=== PATIENT | male | born 1995 | race African-American/Black ===

== ENCOUNTER 2022-08-16 06:21 | Observation (INO) | payer OTHER ==
[2022-08-16] VITALS (12 sets, daily range): BP systolic 101–149; BP diastolic 52–66; PULSE 59–86; TEMP 98.2–101.2
[~2022-08-16] VITALS: Ht 167.6 cm; Wt 68.8 kg
[2022-08-16] MEDS ORDERED: CYMBALTA 20MG20 MG PO (09:12)
[2022-08-16] MEDS ORDERED: LAMICTAL 25MG T25 MG PO (09:14)
[2022-08-16] MEDS ORDERED: MINIPRESS 1M1 MG/CAP PO (09:15)
--- NOTE | 2022-08-16 09:26 | NUR ---
PT ADMITTED TO ROOM 349, ASSESSMENTS COMPLETE, MED REC COMPLETE. DR. LEE NOTIFIED OF PT ARRIVAL. PT IS A/O X3, DENIES NEEDS AT THIS TIME. PT REMAINS NPO AT THIS TIME.
[2022-08-16] MEDS ORDERED: MOTRIN 600600 MG/TAB PO (18:29)
[2022-08-16] MEDS ORDERED: AMOXICILLIN 8751 TAB PO (18:29)
[2022-08-16] MEDS ORDERED: NORCO 325 MG-51 TAB PO (18:29)
--- NOTE | 2022-08-16 18:51 | NUR ---
pt to room 349 per bed with report from Alanis fonseca pacu. Pt is a/o x4. iv to lfa, 3 lap sites to abd, with tawny drain to midline.
--- NOTE | 2022-08-16 19:15 | NUR ---
Received report from ALFONSO Vieyra. Patient resting quietly in bed. Girlfriend at bedside. Patient is drowsy but alert and oriented. Vitals within normal limits. He denies any pain or discomfort at this time. Three lap sites noted to abdomen that are clean, dry, and intact. ANGELA drain to midline with sanguinous drainage.
[2022-08-17 00:13] VITALS: BP 97/50; PULSE 55; TEMP 98
[2022-08-17 04:02] VITALS: BP 98/45; PULSE 62; TEMP 97.9
[2022-08-17 08:18] VITALS: BP 110/42; PULSE 53; TEMP 97.8
--- NOTE | 2022-08-17 09:47 | NUR ---
PT INDEPENDENT IN ROOM. LAP SITES CDI, MIDLINE WITH ANGELA DRAIN WITH SANGUENOUS DRAINAGE. PO PAIN MEDS FOR PAIN CONTROLL.
[2022-08-17 11:41] VITALS: BP 131/74; PULSE 82; TEMP 98.1
--- NOTE | 2022-08-17 12:17 | NUR ---
Initial visit: Reliability Technologist stopped by room on rounds. Pt was resting and content with girlfriend by his side. Pt has no needs right now. Reliability Technologist will follow up as needed.
--- NOTE | 2022-08-17 15:11 | NUR ---
REPORT TO YASMANI HAMILTON.
--- NOTE | 2022-08-17 15:23 | NUR ---
care taken over by this nurse. pt denies needs at this time.
[2022-08-17 16:13] VITALS: BP 124/50; PULSE 55; TEMP 97.7
--- NOTE | 2022-08-17 16:43 | NUR ---
call from dr boland that pt is cleared to discharge
--- NOTE | 2022-08-17 16:56 | NUR ---
Counseling Case Manager met with Patient at bedside to conduct Care Managment Assessment and discuss discharge planning. Patient lives in [place], [place] with his girlfriend. PAtient reports that his mother is the best point of contact with Family. Patient reports that [facility] Patient's preferred Rx is [facility] in [place]. Patient denies the use of O2, DME, and home health services prior to admission. Patient intends to discharge home. Discharge Plan: Home.
--- NOTE | 2022-08-17 17:21 | NUR ---
INT discontinued. waiting for patient's girlfriend to arrive to go over discharge instructions.
--- NOTE | 2022-08-17 19:02 | NUR ---
pt left via wheelchair w friends. discharge instructions given.
== END 2022-08-17 19:00 | disposition home or self-care (01) ==
LOC: MEDICAL 06:21 → SURG 08:49
PROVIDERS: ADMIT Surgery
DX: K35.32 Acute appendicitis with perforation, localized peritonitis, and gangrene, without abscess (principal)
CPT/HCPCS: A9284; G0378; J0330; J0690; J1100; J1170; J1885; J2405; J2543; J2704; J3010; J7120

== ENCOUNTER 2022-08-24 06:11 | Inpatient (IN) | payer OTHER ==
[2022-08-24] VITALS (28 sets, daily range): BP systolic 98–136; BP diastolic 34–73; PULSE 68–94; TEMP 98.9–102.4
[~2022-08-24] VITALS: Ht 167.6 cm; Wt 66.1 kg
[~2022-08-24 06:11] MED LIST: AMOXICILLIN 8751 TAB PO; CYMBALTA 20MG20 MG PO; LAMICTAL 25MG T25 MG PO; MINIPRESS 1M1 MG/CAP PO; MOTRIN 600600 MG/TAB PO; NORCO 325 MG-51 TAB PO
--- NOTE | 2022-08-24 09:00 | NUR ---
PATIENT ADMITED FROM [facility] VIA EMS AND DIRECT ADMIT INTO ROOM 332. A&O. VSS. REPORT RIGHT SIDE PAIN THAT IS MANAGED AT THIS TIME. PATIENT HAD A LAP APPY 08/16 AND WAS SEEN FOR INCREASED PAIN POST OP AT [facility] AND WAS FOUND TO HAVE APPROX 5.3CM ABSCESS. NO C/O N/V. PATIENT REQUESTING FLUIDS, REFFERED TO PROVIDER AND EDUCATED ABOUT ORDERS AND POSSIBLE PROCEDURES. NPO AT THIS TIME. LEFT AC IV TO INT. HEAD TO TOE ASSESSMENT COMPLETE. [facility] REPORTED THEY CLOUDED THE IMAGES TO OUR FACILITY. ORIENTED TO ROOM. CALL LIGHT IN REACH.
--- NOTE | 2022-08-24 09:15 | NUR ---
NOTIFIED SURGEON OF PATIENT ARRIVAL, AWAITING ORDERS. DR. LEE SAID HE WILL PUT IN ORDERS AND SEE THE PATIENT LATER THIS AFTERNOON.
[2022-08-24] MEDS ORDERED: ZOSYN 3 GM-0.371 PD1 IV (09:44)
[2022-08-24 10:32] LABS: HEMATOCRIT 38.6 % (42.0-52.0); HEMOGLOBIN 13.1 g/dl (13.5-18.0); MEAN CELL VOLUME 85 fl (80.0-100.0); MEAN CORPUSCULAR HEMOGLOBIN 29 pg (27-31); MEAN CORPUSCULAR HGB CONC 34 g/dl (33.0-37.0); MEAN PLATELET VOLUME 9.3 fl (7.4-10.4); PLATELET COUNT 339 K/mm3 (130-400); RED BLOOD COUNT 4.56 M/mm3 (4.20-5.60); REDCELL DISTRIBUTION WIDTH-CV 12.8 % (11.5-14.5)
[2022-08-24 10:38] LABS: INR 1.7 (0.8-3.0); PROTHROMBIN TIME 19.1 SECONDS (9.7-12.8)
[2022-08-24 10:47] LABS: ALBUMIN 3.4 gm/dL (3.5-5.0); CALCIUM 8.9 mg/dL (8.4-10.2); CREATININE, serum 0.97 mg/dL (0.72-1.25); POTASSIUM 4.1 mmol/L (3.5-4.5); TOTAL PROTEIN 7.1 gm/dL (6.2-8.1)
[2022-08-24 10:55] LABS: BAND 5 % (0-10); BASOPHIL 1 % (0-2); LYMPHOCYTE 7 % (20.0-51.0); NEUTROPHILS 74 % (42.0-75.2); PLATELET ESTIMATE NORMAL (NORMAL)
--- NOTE | 2022-08-24 11:30 | NUR ---
PATIENT GOING DOWN TO RADIOLOGY. PATIENT OFF FLOOR
--- NOTE | 2022-08-24 11:55 | NUR ---
Pt into scanner by ct staff. Pt onto ct table in supine position. Monitors applied.
--- NOTE | 2022-08-24 12:12 | NUR ---
Specimen obtained and placed in sterile cup. Specimen labeled.
--- NOTE | 2022-08-24 12:40 | NUR ---
Drain in place. Accordian drain attached.
--- NOTE | 2022-08-24 13:00 | NUR ---
PATIENT BACK IN ROOM FROM ABSCESS DRAIN PLACEMENT. PATIENT IS VERY DROWSY. NO COMPLAINTS. VSS. PATIENT SLEEPING WITH LIGHTS TURNED DOWN AND CALL LIGHT IN REACH.
--- NOTE | 2022-08-24 21:31 | NUR ---
SHIFT REPORT FROM JORDYN HAMILTON. PATIENT IN BED ON ROOM ENTRY. ALERT AND ORIENTED. FAMILY AT BEDSIDE. DENIES PAIN. HS MEDS PER EMAR. FEVER REPORTED BY PCT OF 102.4, PRN TYLENOL GIVEN. PATIENT STATES HE DOES NOT FEEL FEVERISH AT THIS TIME. ACCORDIAN DRAIN SITE CDI. OUTPUT IS MINIMAL AND REMAINS ONLY IN TUBING AT THIS TIME. IVF INFUSING WITH INTERMITTENT ZOSYN. DENIES ADDITIONAL NEEDS. CALL LIGHT IN REACH.
[2022-08-25] VITALS (11 sets, daily range): BP systolic 108–175; BP diastolic 61–80; PULSE 50–74; TEMP 98.2–99.1
--- NOTE | 2022-08-25 08:00 | NUR ---
PATIENT IS A&O. VSS. TRANSMISSION AND COORDINATION ENGINEER REPORTED FEVER OF 102.4, AFEBRILE NOW. DENIES PAIN OR N/V. PATIENT DID C/O CONSTIPATION AND FEELING BLOATED, WILL CALL PROVIDER FOR ORDERS IF SURGEON DOESN'T ROUND THIS AM. TOLERATING GENERAL DIET. IV FLUIDS INFUSING VIA PUMP INTO LEFT AC IV. ACCORDIAN DRAIN WITH SCANT AMOUNTS OF DRAINAGE NOTED. HEAD TO TOE ASSESSMENT COMPLETE. SCD'S TO BLE CURRENTLY OFF. NO OTHER NEEDS AT THIS TIME. CALL LIGHT IN REACH.
--- NOTE | 2022-08-25 09:50 | NUR ---
PATIENT WANTINT TO SHOWER THIS AM. PATIENT'S IV TAPED TIGHT TO HIS FORARM SOMETIME OVERNIGHT, WHEN PATIENT EXTENDED HIS ARM THE IV PULLED OUT EXCEPT THE VERY TIP. NURSING UNABLE TO SAVE IV SITE. DC'D LEFT AC SITE, TIP INTACT AND COVERED SITE WITH GAUZE & COBAN. PLAN IS TO RESTART IV AFTER SHOWER
--- NOTE | 2022-08-25 10:06 | NUR ---
Initial visit; Patient thanked Sheep Shearer for looking in on him and offering prayer and how God's blessings. Patient liked to talk so he and Sheep Shearer had a nice conversation.
--- NOTE | 2022-08-25 13:12 | NUR ---
Patient a readmit from appendectomy on 08/17. Patient lives at home with his long time girlfriend Robin ([phone]). Patient is fully independent with his ADL's and IADL's. He has no DME or home oxygen needs. Patient verbalizes that he has established care with the [facility] and his first appointment is scheduled for 08/30. He utilizes [facility] in for prescriptions. Patient does not have a DP- established and does not wish to create one at this time. His legal next of kin would be his mother Gabbie Valenzuela ([phone]). Discharge plan: home
--- NOTE | 2022-08-25 21:50 | NUR ---
SHIFT REPORT FROM JORDYN HAMILTON. PATIENT IN BED ON ROOM ENTRY. ALERT AND ORIENTED. DENIES PAIN. REQUESTS DRAIN DRESSING BE CHANGED. NEW DRAIN GAUZE AND TEGADERM APPLIED. MINIMAL OUTPUT TO ACCORDIAN DRAIN NOTED. PATIENT STATES HE HAS BEEN HAVING SMALL HARD STOOLS AND DIARRHEA. DENIES ADDITIONAL NEEDS. CALL LIGHT IN REACH.
[2022-08-26] VITALS (7 sets, daily range): BP systolic 110–165; BP diastolic 56–70; PULSE 56–66; TEMP 97.7–98.9
[2022-08-26 07:10] LABS: BASO % 0.5 % (0.0-2.0); EOS # 0.1 K/mm3 (0.0-0.7); EOS % 1.4 % (0.0-4.0); GRAN # 4.5 K/mm3 (1.4-6.5); GRAN % 70.3 % (42.2-75.2); HEMATOCRIT 38.4 % (42.0-52.0); HEMOGLOBIN 12.7 g/dl (13.5-18.0); LYMPH # 1.1 K/mm3 (1.2-3.4); LYMPH % 16.5 % (20.0-51.0); MEAN CELL VOLUME 86 fl (80.0-100.0); MEAN CORPUSCULAR HEMOGLOBIN 28 pg (27-31); MEAN CORPUSCULAR HGB CONC 33 g/dl (33.0-37.0); MEAN PLATELET VOLUME 9.6 fl (7.4-10.4); MONO # 0.6 K/mm3 (0.1-0.6); PLATELET COUNT 361 K/mm3 (130-400); RED BLOOD COUNT 4.49 M/mm3 (4.20-5.60); REDCELL DISTRIBUTION WIDTH-CV 12.7 % (11.5-14.5)
[2022-08-26 07:24] LABS: ALBUMIN 3.3 gm/dL (3.5-5.0); BILIRUBIN,TOTAL 0.5 mg/dL (0.2-1.2); CALCIUM 9.6 mg/dL (8.4-10.2); CREATININE, serum 0.88 mg/dL (0.72-1.25); TOTAL PROTEIN 7.3 gm/dL (6.2-8.1)
--- NOTE | 2022-08-26 08:40 | NUR ---
PT RESTING IN BED. PT IS A/O X4, INDEPENDENT IN ROOM. DRAIN SITE TO ABD CDI WITH GAUZE OVER INCISION. TYLENOL GIVEN FOR C/O JORGENSEN. PT DENIES FURTHER NEEDS.
[2022-08-26] MEDS ORDERED: AMOXICILLIN 8751 TAB PO (12:55)
[2022-08-26] MEDS ORDERED: MOTRIN 600600 MG/TAB PO (12:56)
[2022-08-26] MEDS ORDERED: MIRALAX119G PO (12:56)
[2022-08-26] MEDS ORDERED: STOOL SOFTENER100 M2 PO (12:56)
[2022-08-26] MEDS ORDERED: NORCO 325 MG-51 TAB PO (12:56)
--- NOTE | 2022-08-26 14:06 | NUR ---
DISCHARGE INSTRUCTIONS REVIEWED WITH PT AND FAMILY, QUESTIONS SOLICITED AND ANSWERED. PT LEFT UNIT AMBULATORY WITH FAMILY.
[2022-08-31] MEDS ORDERED: OMNICEF 300MG300 MG PO (16:06)
[2022-08-31] MEDS ORDERED: FLAGYL500 MG PO (16:06)
== END 2022-08-26 14:17 | disposition home or self-care (01) | DRG 862 ==
LOC: MEDICAL 06:11 → SURG 09:00
PROVIDERS: ADMIT Surgery
PROC: 0W9J30Z Drainage of Pelvic Cavity with Drainage Device, Percutaneous Approach (ICD-10-PCS; principal; 2022-08-24)
DX: T81.49XA Infection following a procedure, other surgical site, initial encounter (principal); K35.33 Acute appendicitis with perforation, localized peritonitis, and gangrene, with abscess; Y83.8 Other surgical procedures as the cause of abnormal reaction of the patient, or of later complication, without mention of misadventure at the time of the procedure; Z90.49 Acquired absence of other specified parts of digestive tract
CPT/HCPCS: OP; A9284; G0378; G0379; J2250; J2543; J3010; J7120; Q9967